=== PATIENT | male | born 1965 | race American Indian/Alaskan Native ===

== ENCOUNTER 2019-09-16 10:43 | Day surgery (SDC) | payer OTHER ==
[2019-09-16] MEDS ORDERED: LIDOCAINE MPF (2%) 20 MG/1 ML VIAL 5 ML ONE (11:00)
--- NOTE | 2019-09-16 11:16 | Anesthesia Day of Surgery ---
Anesthesia Day of Surgery - Day of Surgery Patient Examined: Yes Patient H&P Reviewed: Yes Patient is NPO: Yes
--- NOTE | 2019-09-16 11:16 | Anesthesia Consultation ---
Anesthesia Consult and Med Hx Date of service: 09/16/19 - Airway Anesthetic Teeth Evaluation: Good ROM Head & Neck: Adequate Mental/Hyoid Distance: Adequate Mallampati Class: Class III Intubation Access Assessment: Possibly Difficult - Pulmonary Exam CTA: Yes - Cardiac Exam Cardiac Exam: RRR - Pre-Operative Health Status ASA Pre-Surgery Classification: ASA1 Proposed Anesthetic Plan: MAC - Pulmonary Hx Smoking: No Hx Respiratory Symptoms: No - Cardiovascular System Hx Hypertension: No Hx Heart Attack/AMI: No Hx Percutaneous Transluminal Coronary Angioplasty (PTCA): No - Central Nervous System CVA: No Hx Back Pain: Yes - Gastrointestinal Hx Gastroesophageal Reflux Disease: No - Endocrine Hx Renal Disease: No Hx Liver Disease: No Hx Insulin Dependent Diabetes: No Hx Non-Insulin Dependent Diabetes: No Hx Thyroid Disease: No - Other Systems Hx Obesity: No - Additional Comments Anesthesia Medical History Comments: No prior anesthetics.
[2019-09-16] MEDS: SODIUM CHLORIDE 0.9% 1000 ML 1,000 ML IV SCH (11:50)
[2019-09-16] MEDS ORDERED: PROPOFOL 200 MG/20 ML VIAL IV ONE ×2 (11:54)
--- NOTE | 2019-09-16 12:34 | Procedure Note ---
Date of procedure: 09/16/18 Pre-op diagnosis: Colon Polyp Screening Post-op diagnosis: other (Solitary,15 mm polyp in the Proximal Descending Colon (removed by Hot,Snare Polypectomy and retrieved with a Barth Net) Procedure: Colonoscopy with Hot Snare Polypectomy and use of Barth Net to retrieve the Polyp Anesthesia: MAC Surgeon: COLE ZARCO Estimated blood loss: minimal Pathology: list Specimen disposition: to lab Condition: stable Disposition: same day (Avoid aspirin and NSAID for 4 days; otherwise resume home medication and follow up in 1 to 2 weeks ([phone]).)
--- NOTE | 2019-09-16 12:41 | Operative Report ---
PROCEDURE: Colonoscopy with hot snare polypectomy and use of the Barth Net to retrieve a polyp. INDICATIONS: The patient is a 54-year-old -[place] gentleman who had come for colonoscopy as part of colon polyp screening. He does have a family history of cancer and his grandmother had some form of cancer that he is not sure of. DESCRIPTION OF PROCEDURE: Procedure was done after getting informed consent with MAC anesthesia. Initial rectal exam was unremarkable. Instrument was passed through the rectum onto the cecum, which was identified by the ileocecal valve and the appendiceal orifice. The cecum was also examined on the retroverted view. No additional pathology was noted. Cecum, ascending colon, transverse colon showed normal mucosa. In the proximal descending colon, there was a 15 mm polyp on a stalk that was removed by hot snare polypectomy and retrieved with a Barth Net. The remaining part of the descending colon and sigmoid showed normal mucosa and the rectum appeared normal on the retroverted view. There was minimal bleeding from the polypectomy site and no complications associated with the procedure. ASSESSMENT: Colon polyp screening, colon polyp 15 mm on a stalk, removed by hot snare polypectomy and retrieved with a Barth Net. No diverticula or internal hemorrhoids noted. There was minimal bleeding from the polypectomy site. No complications associated with the procedure. PLAN: To have the patient avoid aspirin and aspirin-related products for the next 4-5 days. Resume home medication. Follow up in the office in 1-2 weeks' time. The procedure was done in the GI lab with assistance of the GI lab team, which included SRI, Ashly Justin; Lakeisha rodriguez and with assistance of anesthesia. JOB# [id number] ROSALIA/CARMELA
--- NOTE | 2019-09-16 12:47 | Post Anesthesia Evaluation ---
- Post Anesthesia Evaluation Patient Participated: Yes Airway Patent: Yes Stable Respiratory Function: Yes Nausea/Vomiting: No Temp > 96.8F: Yes Pain Manageable: Yes Adequeate Hydration: Yes Anesthesia Complications: No
[2019-09-16 13:09] VITALS: BP 111/75
== END 2019-09-16 10:44 | disposition home or self-care (01) ==
LOC: GIO 10:43
DX: Z12.11 Encounter for screening for malignant neoplasm of colon (principal); K51.40 Inflammatory polyps of colon without complications; M19.90 Unspecified osteoarthritis, unspecified site; Z80.0 Family history of malignant neoplasm of digestive organs; Z79.899 Other long term (current) drug therapy
CPT/HCPCS: 45385; 88305; J2704; J7030